=== PATIENT | female | born 1945 | race Caucasian/White ===

== ENCOUNTER → 2017-11-18 | Outpatient (CLI) | payer OTHER ==
[~2017-11-18] VITALS: Ht 160 cm; Wt 74.4 kg
[~2017-11-18] MED LIST: BETAMETHASONE D15 G1 TOP; BIO IDENTICAL PO; CENTRUM SILVER1 EAC4 PO; GLUCOSAMINE HC500 MG PO; LIGAPLEX PO; MOBIC15 MG PO; MSM1000 MG PO; PEPCID20 MG PO; PROGES PO; TRAMADOL 50 MG50 MG PO; VITAMIN B-12500 MCG PO; VITAMIN D3400 UNIT PO; ZYRTEC10 M4 PO
--- NOTE | ~2017-11-18 | HPC ---
[facility] [place] [address] PAIN MANAGEMENT CONSULTATION Name: JANIS PORTILLO Room #: REG OLVIN Luis#: [id number] Admission: 11/18/17 Attend Phys: Hoang Garcia MD Discharge: Date of : 47 Report #: [id number] THIS REPORT FOR: //name// CC: Gary Guerin DO Hoang Garcia DATE OF SERVICE: 11/18/2017 Followup visit for right shoulder pain. The patient is here today with 2 problems. She has chronic low back pain with radiculopathy and we discussed a possible epidural injection. She is also experiencing pain in her right shoulder after a fall. An MRI was performed and it shows that she has mild supraspinatus tendinosis with a small focus of low-grade partial thickness tearing anterior most fibers. The remainder of the rotator cuff is intact. She would like a shoulder injection. MEDICATIONS: Reviewed and reconciled. She continues on Zyrtec, diazepam as needed, glucosamine, Centrum Silver and meloxicam. Meloxicam, provides some modest benefit. PAST MEDICAL HISTORY AND PQRS: Shows that she has no history of osteoarthritis. She has a BMI of 29.1. Her blood pressure 164/80, heart rate 76. Pain intensity 5/10. She has fallen in the last 3 months, which would make her a potential fall risk. She is on no blood thinners. She has no history of hypertension. She takes no opioid medications. SOCIAL HISTORY: She denies use of tobacco or alcohol. PHYSICAL EXAMINATION: Continuation shows that there is tenderness of the right shoulder pain with external rotation. She has no difficulty with abduction. IMPRESSION: 1. Chronic low back pain with radiculopathy. 2. Right shoulder pain with supraspinatus tendinosis. PLAN: 1. Physical therapy for gentle range of motion exercises. 2. Right shoulder injection with fluoroscopic guidance. PROCEDURE: Skin was prepped with ChloraPrep and 1% lidocaine was utilized with a 27-gauge needle to anesthetize the skin. Using fluoroscopic guidance, I advanced the needle in the shoulder capsule. An anterior approach was utilized. I gently injected in and around the shoulder joint. A total of 4 mL of 0.5% [facility] [address] [place] [address] PAIN MANAGEMENT CONSULTATION Name: LINDSEYJANIS Tyree Room #: REG [facility]#: [id number] Admission: 11/18/17 Attend Phys: Hoang Garcia MD Discharge: Date of : 47 Report #: [id number] bupivacaine mixed with 40 mg of triamcinolone. Pain score was 0. She was discharged in good condition. Follow up as needed. <ELECTRONICALLY SIGNED> By: Hoang Garcia MD 11/18/17 1615 [id number] Hoang Garcia MD /nt
[2017-11-18 10:04] VITALS: BP 164/80
== END | disposition home or self-care (01) ==
LOC: PAIN 09:01
DX: M75.81 Other shoulder lesions, right shoulder (principal); M25.511 Pain in right shoulder; M54.16 Radiculopathy, lumbar region; G89.29 Other chronic pain; Z79.891 Long term (current) use of opiate analgesic; Z88.8 Allergy status to other drugs, medicaments and biological substances; Z79.899 Other long term (current) drug therapy